=== PATIENT | female | born 1970 | race Caucasian/White ===

== ENCOUNTER 2021-02-11 16:50 | Emergency (ER) | payer MEDICAID, SELFPAY ==
[2021-02-11 16:52] VITALS: BP 156/96; PULSE 72; RESP 16; TEMP 36.5; O2SAT 99; BMI 25.1
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
--- NOTE | 2021-02-11 17:18 | HMH.EDUTC ---
[facility] [place] Disposition Clinical Impression: Right ankle sprain Qualifiers: Encounter type: initial encounter Involved ligament of ankle: anterior talofibular ligament Qualified Code(s): S93.491A - Sprain of other ligament of right ankle, initial encounter Disposition: Home, Self-Care Condition on Discharge: Good Instructions: DI for Ankle Sprain Additional Instructions: Rest, ice, compression, elevation. Wear boot as often as possible. Follow up if not improving. Time of Disposition: 17:52 Medical Decision Making - Zeferino Inquiry Pt receiving controlled substance: No Vital Signs: 02/11/21 16:52 Temperature 97.7 F Temperature Source Oral Pulse Rate [Apical] 72 Respiratory Rate 16 Blood Pressure [Right Arm] 156/96 H Blood Pressure Mean [Right Arm] 116 Blood Pressure Source [Right Arm] Automatic Cuff Blood Pressure Position [Right Arm] Supine 02 Sat by Pulse Oximetry 99 Oxygen Delivery Method Room Air - Radiology Data #1 Image(s): Ankle Image Reviewed: Yes I reviewed the patient's radiology image Preliminary Findings: Normal/NAD, No Fracture Seen [facility] [place] HPI - General Stated complaint: rt ankle pain Time Seen by Provider: 02/11/21 17:18 Mode of Arrival: Ambulatory Source of Information: Patient Limitations: No Limitations Description of Symptoms (Recalled from Triage Doc. by RN): right ankle pain/swelling HEENT Symptoms (Recalled from RN notes): No Resp Symptoms (Recalled from RN notes): No Skin Symptoms (Recalled from RN notes): No MS Symptoms (Recalled from RN notes): Yes Functional Status (Recalled from RN notes): na - History of Present Illness Provider Complaint: Patient twisted her right ankle 2 weeks ago. Still has pain and swelling. Painful to bear weight. Onset (ago): week(s) (2) Location: right, lower extremity Relieving factors: immobilization Exacerbating factors: movement Treatments prior to arrival: none - Related Data Allergies Allergy/AdvReac Type Severity Reaction Status Date / Time Penicillins Allergy Verified 02/11/21 17:10 - Worker's Comp Is this a Worker's Comp case?: No [facility] History - Hepatitis A Screen Drug use history?: No High risk sexual behaviors?: No History of sexually transmitted infection?: No Currently employed?: No Childcare worker?: No Do you have indoor plumbing?: Yes Do you have electricity?: Yes Attestation statement:: This patient has been screened for Hepatitis A risk factors. I have reviewed the patient's past medical history: Yes ROS Obtained: Yes All systems reviewed & no additional complaints - Musculoskeletal Musculoskeletal: Reports joint pain Physical Exam - General General appearance: alert, in no apparent distress - Head Head exam: normocephalic - Eye Eye exam: Present: PERRL - Respiratory Respiratory exam: Present: normal lung sounds bilaterally - Cardiovascular Cardiovascular exam: Present: regular rate, normal rhythm - Expanded Lower Extremity Exam Right Ankle exam: Present: tenderness, swelling, tenderness over talofibular lig - Neurological Exam Neurological exam: Present: alert, oriented X3 - Psychiatric Psychiatric exam: Present: normal affect, normal mood - Skin Skin exam: Present: warm, dry, intact
--- NOTE | 2021-02-11 17:40 | PC.NURSE ---
covid swab sent to lab
[2021-02-11 18:15] VITALS: BP 156/96; PULSE 72; RESP 16; TEMP 36.5; O2SAT 99
== END 2021-02-11 18:15 | disposition home or self-care (01) ==
PROVIDERS: Emergency Provider Physician Assistant
DX: S93.491A Sprain of other ligament of right ankle, initial encounter (principal); X50.1XXA Overexertion from prolonged static or awkward postures, initial encounter; Z88.0 Allergy status to penicillin
CPT/HCPCS: 29515; 73610; 99202; G0463

== ENCOUNTER 2021-04-18 04:07 | Emergency (ER) | payer OTHER, MEDICAID, SELFPAY ==
[2021-04-18 04:20] VITALS: BP 149/96; PULSE 85; RESP 18; TEMP 36.7; O2SAT 97; BMI 24.3
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
[2021-04-18 05:48] VITALS: BP 157/88; PULSE 72; RESP 18; TEMP 36.7; O2SAT 98
== END 2021-04-18 05:52 | disposition home or self-care (01) ==
PROVIDERS: Emergency Provider Emergency Medicine; PCP Family Medicine
DX: S16.1XXA Strain of muscle, fascia and tendon at neck level, initial encounter (principal); S06.0X0A Concussion without loss of consciousness, initial encounter; S42.114A Nondisplaced fracture of body of scapula, right shoulder, initial encounter for closed fracture; V49.40XA Driver injured in collision with unspecified motor vehicles in traffic accident, initial encounter; Y92.414 Local residential or business street as the place of occurrence of the external cause
CPT/HCPCS: 70450; 71045; 72125; 72128; 72131; 72170; 73030; 73130; 96372; 99283

== ENCOUNTER 2022-07-04 17:00 | Emergency (ER) | payer MEDICAID, SELFPAY ==
--- NOTE | 2022-07-04 18:54 | EXP.UTC ---
Discharge Plan Disposition Patient Disposition: Home, Self-Care Condition: Good Prescriptions Prescriptions: New benzonatate [benzonatate] 100 mg capsule 100 mg PO TIDP PRN (Reason: Cough) Qty: 30 0RF albuterol sulfate [Ventolin HFA] 90 mcg/actuation HFA aerosol inhaler 2 puff inhalation Q6H PRN (Reason: Shortness Of Breath Or Wheezing) Qty: 1 0RF ondansetron 4 mg Tablet,Disintegrating 4 mg PO Q8H PRN (Reason: Nausea) Qty: 20 0RF No Action acetaminophen-codeine 1 EACH tablet 1 tab PO Q8 PRN (Reason: Moderate To Severe Pain) Referrals Follow up/Referrals: Provider,Referral, MD [Primary Care Provider] - See instructions Activity Restrictions/Add. Instructions Additional Instructions/Restrictions: Drink plenty of fluids. Take tylenol or ibuprofen for pain or fever. Take the medications as directed. Return if you begin to have difficulty breathing. Follow up with your regular doctor. GO TO THE ER FOR ANY WORSENING SYMPTOMS Quarantine until you know the results of your covid-19 test. Notify your school or workplace of your results and follow their instructions regarding return to work/school. Clinical Impressions Clinical Impression: COVID-19, Viral syndrome Stand Alone Forms Stand Alone Forms: Work/School Release Instructions Patient Instructions: Coronavirus Disease 2019, Preventing the Spread of Coronavirus Discharge Instructions Discharge ED Provider: Zi Phipps [facility] General Stated complaint: needs covid test; at home test was positive Time Seen by Provider: 07/04/22 18:54 History of Present Illness Provider Complaint: She states that for the past 3 days she has felt very fatigue, ran a low grade fever, had chest congestion and a cough. She tested positive for covid-19 on a home test today. She is here to have pcr covid-19 test for her employer. Related Data Home Medications Medication Instructions Recorded Confirmed acetaminophen 300 mg-codeine 30 mg 1 tab PO Q8 PRN Moderate To Severe 04/18/21 04/18/21 tablet Pain Previous Rx's Medication Instructions Recorded albuterol sulfate 90 mcg/actuation 2 puff inhalation Q6H PRN 07/04/22 aerosol inhaler (Ventolin HFA) Shortness Of Breath Or Wheezing #1 g benzonatate 100 mg capsule 100 mg PO TIDP PRN Cough #30 caps 07/04/22 ondansetron 4 mg disintegrating 4 mg PO Q8H PRN Nausea #20 tabs 07/04/22 tablet Allergies Allergy/AdvReac Type Severity Reaction Status Date / Time Penicillins Allergy Verified 07/04/22 19:10 PFSH [facility] Social History Smoking Status: Current every day smoker tobacco type: cigarettes packs per day: 1 alcohol intake: never current occupational status: employed Travel in the last 8 weeks: None ROS Obtained: Yes All systems reviewed & no additional complaints except as documented Constitutional Constitutional: Reports chills and Reports fever(s) Eyes Eyes: Denies eye discharge ENT Ears, Nose, Mouth, and Throat: Reports as per HPI Cardiovascular Cardiovascular: Denies chest pain Respiratory Respiratory: Denies chest congestion and Reports cough Gastrointestinal Gastrointestingal: Reports nausea; Denies abdominal pain, constipation, cramping, diarrhea or vomiting Musculoskeletal Musculoskeletal: Denies arthralgias Integumentary/Breasts Skin/Breast: Denies rash Neurologic Neurologic: Denies paresthesias Physical Exam General General appearance: alert and in no apparent distress Head Head exam: atraumatic, normocephalic and normal inspection Eye Eye exam: Present normal appearance, PERRL and EOMI ENT ENT exam: Present normal exam, normal oropharynx, mucous membranes moist, TM's normal bilaterally and normal external ear exam Neck Neck exam: Present normal inspection, full ROM and trachea midline; Absent meningismus or lymphadenopathy Chest Chest inspection: Present normal inspection and symmetric wilmer
[2022-07-04 19:04] VITALS: BP 135/81; PULSE 72; RESP 18; TEMP 36.5; O2SAT 97; BMI 22.5
[2022-07-04 19:19] VITALS: BP 135/81; PULSE 72; RESP 18; TEMP 36.5
== END 2022-07-04 19:20 | disposition home or self-care (01) ==
PROVIDERS: Emergency Provider Nurse Practitioner Family
DX: U07.1 COVID-19 (principal)
CPT/HCPCS: 99212; C9803; G0463; U0003; U0005